=== PATIENT | male | born 1985 ===

== ENCOUNTER → 2024-01-07 12:55 | Outpatient (CLI) | payer OTHER, SELFPAY ==
--- NOTE | 2024-01-07 12:57 | DI.MRI.S_ITS ---
PROCEDURE: MRFOOT LT WO CON INDICATIONS: PAIN IN LEFT FOOT TECHNIQUE: Multiphasic, multisequence MRI of the forefoot was performed, without intravenous contrast administration. COMPARISON: [facility] Outside Film, RG, FOOT COMP MIN 3VW (RT), 05/10/2023, 15:03. FINDINGS: Image quality: Excellent. Bones and joints: No bone marrow contusions or metatarsal stress fractures. The sesamoid bones appear in expected positions, without internal edema. No significant metatarsophalangeal joint degeneration. No intraosseous lesions. Soft tissues: There is fluid signal within 2nd interspace between 2nd and 3rd MTP joints likely represent intermetatarsal bursal fluid and bursitis. No discrete soft tissue mass is noted. The visualized plantar foot muscles demonstrate normal signal and bulk. There is thickened flexor tendon of 3rd toe at the level of 3rd MTP joint and 3rd proximal phalangeal shaft with mild surrounding edema. Rest of the flexor and extensor tendons appear intact, without tenosynovitis. The distal insertions of the peroneus brevis and longus tendons appear intact. The principal Lisfranc ligament appears intact. Sagittal images demonstrate no evidence for plantar plate tears. IMPRESSION: 1. No marrow edema. No forefoot fracture or dislocation. No suspicious bony lesions. 2. Fluid distending 2nd interspace concerning for intermetatarsal bursal fluid and bursitis. No 3. Suggestion of tendinosis involving flexor tendon of 3rd toe at the level of 3rd MTP joint and proximal phalanx. Rest of the extensor and flexor tendons are intact. Lisfranc ligament is intact. Dictated by: Andi Goldsmith M.D. on 01/08/2024 at 15:18 Approved by: Andi Goldsmith M.D. on 01/08/2024 at 15:28
== END ==
DX: M79.672 Pain in left foot (principal)
CPT/HCPCS: 73718